=== PATIENT | female | born 1990 | race Caucasian/White ===

== ENCOUNTER 2016-09-08 13:24 | Emergency (ER) | payer OTHER ==
[~2016-09-08 13:24] MED LIST: DELTASONE20 MG PO; EPINEPHRIN0.3 MG/0.2 IM; LEVSIN-SL0.125 MG SL; OMEPRAZOLE20 M3 PO; PRILOSEC20 M1 PO; XANAX1 M1 PO
[2016-09-08] MEDS ORDERED: NO HOME MEDICATION XX (14:34)
[2016-09-08] MEDS ORDERED: CLINDAMYCIN HC150 M1 PO (16:19)
[2016-09-08] MEDS ORDERED: NORCO 5-325 TA1 EACH PO (16:50)
== END 2016-09-08 16:26 ==
LOC: EDMED 13:24
PROC: 0H96XZZ Drainage of Back Skin, External Approach (ICD-10-PCS; principal; 2016-09-08)
DX: L05.01 Pilonidal cyst with abscess (principal); Z88.0 Allergy status to penicillin; Z88.2 Allergy status to sulfonamides